=== PATIENT | female | born 1965 ===

== ENCOUNTER 2024-10-10 12:08 | Outpatient (CLI) | payer OTHER, SELFPAY ==
--- NOTE | 2024-10-10 | DI.RAD_ITS ---
Exam(s) XR CERVICAL SP HAWKINS TRAUMA 2-3V EXAM: XR CERVICAL SP HAWKINS TRAUMA 2-3V CLINICAL HISTORY: S/P CERVICAL SPINE FUSION,Z98.1. TECHNIQUE: 2D digital imaging was performed. Three views. COMPARISON: No exams were available for comparison FINDINGS: BONES: No fracture or destructive lesion. Anterior fusion hardware spanning C4 through C7. DISKS: Intervertebral disc spaces are maintained. ALIGNMENT: Cervical spinal alignment is within normal limits. The odontoid and atlantoaxial articulat ions are normal. SOFT TISSUE: Normal. The lung apices are clear. IMPRESSION: Anterior cervical fusion from C4 through C7 DATA REPOSITORY: RADIATION DOSE DELIVERED:
== END 2024-10-10 12:28 ==
PROVIDERS: PCP Orthopaedic Surgery Orthopaedic Surgery of the Spine; Visit Provider Orthopaedic Surgery Orthopaedic Surgery of the Spine
DX: Z98.1 Arthrodesis status (principal); M43.22 Fusion of spine, cervical region
CPT/HCPCS: 72040